=== PATIENT | female | born 1950 | race Caucasian/White ===

== ENCOUNTER 2023-10-02 11:54 | Emergency (ER) | payer MEDICARE, MEDICAID ==
[~2023-10-02] VITALS: Ht 152.4 cm; Wt 91.0 kg
[~2023-10-02 11:54] MED LIST: ALBU18HF2 INH; ATOR40TA71 PO; BACL10TA PO; BUPR100T15 PO; CALC1CAP21 PO; ESCI-8 PO; FLUT1BLS3 INH; FOLI1TAB27 PO; GABA600T13 PO; GUAI600T45 PO; HYDR-3972 PO; IPRA3AMP31 IH; LISI10TA27 PO; LOP25T PO; LORA-269 PO; LORA10TA65 PO; MEMA10TA56 PO; METH-348 PO; MIRT-88 PO; MULT-25 PO; NITR0.4T51 SL; PANT40TA54 PO; PRE5T PO; QUET100T34 PO; QUET300T91 PO; QUET50TA15 PO; RISP0.5T65 PO; VENL150T3 PO; thiamine tablet PO
[2023-10-02 12:03] VITALS: TEMP 98.2
[2023-10-02 12:33] LABS: EOSINOPHILS # (AUTO) 0.2 X10'3 (0-0.9); MEAN PLATELET VOLUME 8.2 FL (7.4-10.4); PLATELET COUNT 199 X10'3 (140-440)
[2023-10-02 12:35] LABS: BASOPHILS # (AUTO) 0.1 X10'3 (0-0.2); HEMATOCRIT 34.4 % (35.0-45.0); LYMPHOCYTES # (AUTO) 2.3 X10'3 (1.1-4.8); LYMPHOCYTES % (AUTO) 24.8 % (21-51); MEAN CORPUSCULAR HEMOGLOBIN 30.6 PG (27.0-31.0); MEAN CORPUSCULAR HGB CONC 31.9 g/dL (33.0-36.5); MONOCYTES # (AUTO) 0.9 X10'3 (0-0.9); NEUTROPHILS # (AUTO) 5.7 X10'3 (1.8-7.7); NEUTROPHILS % (AUTO) 62.2 % (42-75); RED BLOOD COUNT 3.59 X10'6 (4.20-5.60); RED CELL DISTRIBUTION WIDTH 17.6 % (11.5-14.5); WHITE BLOOD COUNT 9.1 X10'3 (4.5-11.0)
[2023-10-02 12:48] LABS: ALANINE AMINOTRANSFERASE 25 U/L (12-78); ALBUMIN 2.9 G/DL (3.4-5.0); ALBUMIN/GLOBULIN RATIO 0.7 (1.1-1.5); ALKALINE PHOSPHATASE 145 IU/L (46-116); ANION GAP 8 (8-16); ASPARTATE AMINO TRANSFERASE 31 U/L (10-37); BILIRUBIN,TOTAL 0.2 MG/DL (0.1-1.0); BLOOD UREA NITROGEN 56 MG/DL (7-18); BUN/CREATININE RATIO 25.3 (10.0-20.0); CALCIUM 8.9 MG/DL (8.5-10.1); CHLORIDE 106 MMOL/L (99-107); CREATININE 2.21 MG/DL (0.40-0.90); GLUCOSE 105 MG/DL (70-104); POTASSIUM 5.5 MMOL/L (3.5-5.1); SODIUM 140 MMOL/L (135-145); TOTAL PROTEIN 6.9 G/DL (6.4-8.2); eCRCL 17 ML/MIN; eGFR 22 ML/MIN
[2023-10-02 12:55] LABS: PRO BRAIN NATRIURETIC PEPTIDE 154 PG/ML (0-125)
[2023-10-02] MEDS ORDERED: methylPREDNISolone sod succ 125mg/2ml vial IV ONE (13:10)
[2023-10-02 13:28] VITALS: PULSE 80; PULSE 86; RESP 1; RESP 8; O2SAT 9; O2SAT 91
[2023-10-02] MEDS ORDERED: PRED20TA PO (14:44)
[2023-10-02] MEDS ORDERED: CEPH250T PO (14:45)
[2023-10-02] MEDS ORDERED: ipratropium/albuterol 3ml nebule NEB SCH (15:00)
[2023-10-02 15:25] VITALS: BP 125/88; PULSE 95; RESP 16; O2SAT 95
== END 2023-10-02 15:34 | disposition home or self-care (01) ==
LOC: ER 11:54
DX: J44.1 Chronic obstructive pulmonary disease with (acute) exacerbation (principal)
CPT/HCPCS: 36415; 71045; 80053; 83605; 83880; 84484; 85025; 87040; 93005; 96374; 99285; J2930; 94760

== ENCOUNTER 2023-12-16 14:05 | Emergency (ER) | payer MEDICARE, MEDICAID ==
[~2023-12-16] VITALS: Ht 152.4 cm; Wt 90.3 kg
[~2023-12-16 14:05] MED LIST changes: -ESCI-8 PO; -GUAI600T45 PO; -MULT-25 PO; -PRE5T PO; -RISP0.5T65 PO; +RISP0.5T80 PO
[2023-12-16 14:23] VITALS: BP 127/80; PULSE 103; RESP 22; TEMP 97.4; O2SAT 96
[2023-12-16] MEDS ORDERED: NYST30CR35 TOP (14:49)
[2023-12-16] MEDS: dexamethasone sod phosphate 10mg/ml inj PO STA (17:22)
== END 2023-12-16 18:05 | disposition home or self-care (01) ==
LOC: ER 14:06
DX: B37.2 Candidiasis of skin and nail (principal); F20.9 Schizophrenia, unspecified; J44.9 Chronic obstructive pulmonary disease, unspecified; Z88.8 Allergy status to other drugs, medicaments and biological substances
CPT/HCPCS: 71045; 99283; J1100

== ENCOUNTER 2024-01-08 13:32 | Emergency (ER) | payer MEDICARE, MEDICAID ==
[~2024-01-08] VITALS: Ht 152.4 cm; Wt 88.0 kg
[~2024-01-08 13:32] MED LIST changes: +NYST30CR35 TOP
[2024-01-08 13:36] VITALS: TEMP 99.3
[2024-01-08 14:44] LABS: BASOPHILS # (AUTO) 0.1 X10'3 (0-0.2); BASOPHILS % (AUTO) 0.7 % (0-1); EOSINOPHILS # (AUTO) 0.2 X10'3 (0-0.9); EOSINOPHILS % (AUTO) 1.4 % (0-6); HEMATOCRIT 34.1 % (35.0-45.0); HEMOGLOBIN 10.5 g/dl (12.0-16.0); LYMPHOCYTES # (AUTO) 1.9 X10'3 (1.1-4.8); LYMPHOCYTES % (AUTO) 17.1 % (21-51); MEAN CORPUSCULAR HGB CONC 30.7 g/dL (33.0-36.5); MEAN CORPUSCULAR VOLUME 91.2 FL (78-98); MEAN PLATELET VOLUME 8.4 FL (7.4-10.4); MONOCYTES # (AUTO) 1.1 X10'3 (0-0.9); MONOCYTES % (AUTO) 10.3 % (2-12); NEUTROPHILS # (AUTO) 7.8 X10'3 (1.8-7.7); NEUTROPHILS % (AUTO) 70.5 % (42-75); PLATELET COUNT 296 X10'3 (140-440); RED BLOOD COUNT 3.74 X10'6 (4.20-5.60); RED CELL DISTRIBUTION WIDTH 17.9 % (11.5-14.5)
[2024-01-08 14:55] LABS: ALBUMIN 3.1 G/DL (3.4-5.0); ANION GAP 8 (8-16); BLOOD UREA NITROGEN 17 MG/DL (7-18); BUN/CREATININE RATIO 9.9 (10.0-20.0); CALCIUM 8.6 MG/DL (8.5-10.1); CHLORIDE 107 MMOL/L (99-107); CREATININE 1.72 MG/DL (0.40-0.90); GLUCOSE 168 MG/DL (70-104); POTASSIUM 4.3 MMOL/L (3.5-5.1); SODIUM 144 MMOL/L (135-145); TOTAL CARBON DIOXIDE 29.3 MMOL/L (24-32); eCRCL 22 ML/MIN; eGFR 29 ML/MIN
[2024-01-08] MEDS: CefTRIAXone 2gm/D5W 50ml BAG 50 ML IV ONE (16:06)
[2024-01-08 17:13] LABS: BILIRUBIN,URINE NEGATIVE (Neg); CLARITY,URINE CLEAR (Clear); COLOR,URINE YELLOW (Yellow); GLUCOSE, URINE >=1000 mg/dl (Neg); KETONES,URINE NEGATIVE (Neg); LEUKOCYTE ESTERASE ,URINE NEGATIVE (Neg); NITRITES, URINE NEGATIVE (Neg); OCCULT BLOOD,URINE NEGATIVE (Neg); PH,URINE 5.5 (4.8-8.0); PROTEIN,URINE NEGATIVE (Neg); UROBILINOGEN,URINE 0.2 E.U/dL (0.2-1.0)
[2024-01-08 17:28] LABS: BACTERIA,URINE NONE SEEN /HPF (Neg); UA COLLECTION TYPE CLN CATCH MIDSTREAM; WBC,URINE 0-4 /HPF (0-4)
[2024-01-08 17:29] LABS: MUCUS STRANDS FEW /LPF (Neg); SQUAMOUS EPITHELIAL CELL,UR FEW /LPF (FEW)
[2024-01-08 18:36] VITALS: BP 130/82; PULSE 87; RESP 16; O2SAT 95
== END 2024-01-08 18:38 | disposition home or self-care (01) ==
LOC: ER 13:33
DX: E11.22 Type 2 diabetes mellitus with diabetic chronic kidney disease (principal); N18.9 Chronic kidney disease, unspecified; E11.622 Type 2 diabetes mellitus with other skin ulcer; L97.129 Non-pressure chronic ulcer of left thigh with unspecified severity; I12.9 Hypertensive chronic kidney disease with stage 1 through stage 4 chronic kidney disease, or unspecified chronic kidney disease; E78.00 Pure hypercholesterolemia, unspecified; I25.2 Old myocardial infarction; J44.9 Chronic obstructive pulmonary disease, unspecified; F20.9 Schizophrenia, unspecified; Z90.49 Acquired absence of other specified parts of digestive tract; F12.90 Cannabis use, unspecified, uncomplicated; Z88.8 Allergy status to other drugs, medicaments and biological substances
CPT/HCPCS: 36415; 71045; 80048; 81001; 82948; 83605; 83735; 84145; 85025; 85651; 87040; 87081; 93005; 96365; 99285; A6223; J0696; J7030; A6402

== ENCOUNTER 2024-03-27 12:48 | Emergency (ER) | payer MEDICARE, MEDICAID ==
[~2024-03-27] VITALS: Ht 162.6 cm; Wt 40.1 kg
[~2024-03-27 12:48] MED LIST changes: +MEMA10TA22 PO; -MEMA10TA56 PO
[2024-03-27 13:31] LABS: BASOPHILS # (AUTO) 0.1 X10'3 (0-0.2); BASOPHILS % (AUTO) 0.5 % (0-1); EOSINOPHILS % (AUTO) 0.3 % (0-6); HEMATOCRIT 40.9 % (35.0-45.0); HEMOGLOBIN 12.7 g/dl (12.0-16.0); LYMPHOCYTES # (AUTO) 1.9 X10'3 (1.1-4.8); LYMPHOCYTES % (AUTO) 13.6 % (21-51); MEAN CORPUSCULAR HEMOGLOBIN 27.8 PG (27.0-31.0); MEAN CORPUSCULAR HGB CONC 31.2 g/dL (33.0-36.5); MEAN CORPUSCULAR VOLUME 89.2 FL (78-98); MEAN PLATELET VOLUME 9.1 FL (7.4-10.4); MONOCYTES % (AUTO) 6.7 % (2-12); NEUTROPHILS # (AUTO) 11.2 X10'3 (1.8-7.7); NEUTROPHILS % (AUTO) 78.9 % (42-75); PLATELET COUNT 288 X10'3 (140-440); RED BLOOD COUNT 4.58 X10'6 (4.20-5.60); RED CELL DISTRIBUTION WIDTH 20.5 % (11.5-14.5); WHITE BLOOD COUNT 14.2 X10'3 (4.5-11.0)
[2024-03-27 14:18] LABS: ALBUMIN 3.5 G/DL (3.4-5.0); ANION GAP 11 (8-16); BLOOD UREA NITROGEN 24 MG/DL (7-18); BUN/CREATININE RATIO 12.9 (10.0-20.0); CALCIUM 10.3 MG/DL (8.5-10.1); CHLORIDE 105 MMOL/L (99-107); CREATININE 1.86 MG/DL (0.40-0.90); GLUCOSE 201 MG/DL (70-104); POTASSIUM 4.8 MMOL/L (3.5-5.1); SODIUM 142 MMOL/L (135-145); TOTAL CARBON DIOXIDE 25.8 MMOL/L (24-32); eCRCL 18 ML/MIN; eGFR 27 ML/MIN
[2024-03-27 14:40] LABS: PLATELET ESTIMATE NORMAL
[2024-03-27 14:41] LABS: ANISOCYTOSIS 3+; POLYCHROMASIA FEW; STOMATOCYTES FEW
[2024-03-27] MEDS ORDERED: AMOX-117 PO (14:49)
[2024-03-27] MEDS ORDERED: SULF-14 PO (14:49)
[2024-03-27] MEDS: normal saline 1000ml 1,000 ML IV ONE ×2 (15:12)
[2024-03-27] MEDS: TETanus/Pertussis (Acell)/Diphther VAC/PF (Tdap-Adult) 0.5ml syringe IMVAC ONE (15:13)
[2024-03-27] MEDS: mupirocin 2% ointment 22GM TP ONE (15:14)
[2024-03-27] MEDS: sulfamethoxazole/trimethoprim DS (800/160mg) tablet PO ONE (15:14)
[2024-03-27] MEDS: LIDOcaine 1% W/epiNEPHrine 1:100,000 20ml vial IJ ONE (15:14)
[2024-03-27] MEDS: amox tr/potassium clavulanate 875/125mg TAB PO ONE (15:14)
[2024-03-27] MEDS: LORazepam 2 mg/ml vial IV ONE (15:19)
[2024-03-27] MEDS: morphine 4 MG/ML inj SYRINge IV ONE (15:20)
[2024-03-27] MEDS: ampicillin/sulbac 3gm/NS 100ml 100 ML IV ONE (16:10)
[2024-03-27 18:52] VITALS: BP 132/66; PULSE 84; RESP 16; TEMP 98.6; O2SAT 98
== END 2024-03-27 18:54 | disposition home or self-care (01) ==
LOC: ER 12:48
DX: J34.0 Abscess, furuncle and carbuncle of nose (principal); J34.89 Other specified disorders of nose and nasal sinuses; E78.00 Pure hypercholesterolemia, unspecified; I10 Essential (primary) hypertension; I25.2 Old myocardial infarction; J45.909 Unspecified asthma, uncomplicated; F20.9 Schizophrenia, unspecified; F12.90 Cannabis use, unspecified, uncomplicated; F19.90 Other psychoactive substance use, unspecified, uncomplicated; Z60.2 Problems related to living alone; Z90.49 Acquired absence of other specified parts of digestive tract; Z98.890 Other specified postprocedural states; Z88.8 Allergy status to other drugs, medicaments and biological substances; Z79.2 Long term (current) use of antibiotics; Z79.899 Other long term (current) drug therapy; Z79.51 Long term (current) use of inhaled steroids
CPT/HCPCS: 10060; 36415; 80048; 83605; 84145; 85008; 85025; 87040; 90715; 96361; 96365; 96375; 99284; G0008; J0295; J2060; J2270; J7030; Z7610; 90471

== ENCOUNTER 2024-04-05 14:05 | Inpatient (IN) | payer MEDICARE, MEDICAID ==
[~2024-04-05] VITALS: Ht 167.6 cm; Wt 86.9 kg
[2024-04-05 15:29] LABS: BASOPHILS # (AUTO) 0.1 X10'3 (0-0.2); BASOPHILS % (AUTO) 0.8 % (0-1); EOSINOPHILS # (AUTO) 0.1 X10'3 (0-0.9); EOSINOPHILS % (AUTO) 1.3 % (0-6); HEMATOCRIT 37.4 % (35.0-45.0); HEMOGLOBIN 11.6 g/dl (12.0-16.0); LYMPHOCYTES # (AUTO) 2.1 X10'3 (1.1-4.8); LYMPHOCYTES % (AUTO) 18.1 % (21-51); MEAN CORPUSCULAR HEMOGLOBIN 27.7 PG (27.0-31.0); MEAN CORPUSCULAR HGB CONC 31.2 g/dL (33.0-36.5); MEAN PLATELET VOLUME 8.8 FL (7.4-10.4); MONOCYTES # (AUTO) 0.9 X10'3 (0-0.9); NEUTROPHILS # (AUTO) 8.2 X10'3 (1.8-7.7); NEUTROPHILS % (AUTO) 71.8 % (42-75); PLATELET COUNT 305 X10'3 (140-440); RED CELL DISTRIBUTION WIDTH 20.6 % (11.5-14.5); WHITE BLOOD COUNT 11.3 X10'3 (4.5-11.0)
[2024-04-05 15:49] LABS: ALBUMIN 3.1 G/DL (3.4-5.0); ANION GAP 8 (8-16); BLOOD UREA NITROGEN 34 MG/DL (7-18); BUN/CREATININE RATIO 11.7 (10.0-20.0); CALCIUM 8.5 MG/DL (8.5-10.1); CHLORIDE 110 MMOL/L (99-107); CREATININE 2.91 MG/DL (0.40-0.90); GLUCOSE 134 MG/DL (70-104); POTASSIUM 5.4 MMOL/L (3.5-5.1); PRO BRAIN NATRIURETIC PEPTIDE 82 PG/ML (0-125); SODIUM 142 MMOL/L (135-145); eGFR 16 ML/MIN
[2024-04-05 15:50] LABS: PLATELET ESTIMATE NORMAL
[2024-04-05 15:51] LABS: ANISOCYTOSIS 3+; STOMATOCYTES 1+
[2024-04-05 17:51] LABS: BILIRUBIN,URINE NEGATIVE (Neg); CLARITY,URINE CLEAR (Clear); COLOR,URINE YELLOW (Yellow); GLUCOSE, URINE >=1000 mg/dl (Neg); KETONES,URINE TRACE mg/dl (Neg); LEUKOCYTE ESTERASE ,URINE NEGATIVE (Neg); NITRITES, URINE NEGATIVE (Neg); OCCULT BLOOD,URINE NEGATIVE (Neg); PH,URINE 5.5 (4.8-8.0); PROTEIN,URINE NEGATIVE (Neg); UROBILINOGEN,URINE 0.2 E.U/dL (0.2-1.0)
[2024-04-05 17:57] LABS: URINE AMPHETAMINE SCREEN NEGATIVE (Neg); URINE BARBITUATE SCREEN NEGATIVE (Neg); URINE BENZODIAZEPINES SCREEN NEGATIVE (Neg); URINE CANNABINOID SCREEN POSITIVE (Neg); URINE COCAINE SCREEN NEGATIVE (Neg); URINE METHADONE SCREEN NEGATIVE (Neg); URINE OPIATE SCREEN NEGATIVE (Neg); URINE PHENCYCLIDINE SCREEN NEGATIVE (Neg)
[2024-04-05 18:05] LABS: UA COLLECTION TYPE CLN CATCH MIDSTREAM
[2024-04-05 18:05] LABS: ETHANOL < 10 MG/DL (<10); SALICYLATE 2.5 MG/DL (4.0-20.0)
[2024-04-05 18:06] LABS: RBC,URINE NONE SEEN /HPF (0-2); SQUAMOUS EPITHELIAL CELL,UR MANY /LPF (FEW); WBC,URINE 0-4 /HPF (0-4)
[2024-04-05 18:07] LABS: BACTERIA,URINE 2+ /HPF (Neg); CAL OXALATE CRYSTALS 1+ /HPF (NEGATIVE)
[2024-04-05 18:13] LABS: ACETAMINOPHEN < 2.0 UG/ML (10-30)
[2024-04-05] MEDS: normal saline 1000ml 1,000 ML IV ONE (19:03)
[2024-04-05] MEDS ORDERED: magnesium Cl slow-release 64mg tablet PO PRN (19:35)
[2024-04-05] MEDS ORDERED: magnesium hydroxide 30ml (MOM) UD suspension PO PRN (19:35)
[2024-04-05] MEDS ORDERED: ondansetron/PF 4mg/2ml inj IV PRN (19:35)
[2024-04-05] MEDS ORDERED: potassium Cl 40MEQ/1/2NS 520ml 520 ML IV PRN (19:35)
[2024-04-05] MEDS ORDERED: magnesium sulf-water 4G/100mL 100 ML IV PRN (19:35)
[2024-04-05] MEDS ORDERED: mag hydrox/Alum hydrox/simeth 30ml oral suspension PO PRN (19:35)
[2024-04-05] MEDS ORDERED: magnesium sulf-water 2g/50mL 50 ML IV PRN (19:35)
[2024-04-05] MEDS ORDERED: acetaminophen 325mg tablet PO PRN (19:35)
[2024-04-05] MEDS ORDERED: potassium Cl 20 mEq SR tablet PO PRN ×2 (19:35)
[2024-04-05] MEDS ORDERED: EMPA10TA PO (19:49)
[2024-04-05] MEDS ORDERED: VENL150C58 PO (19:49)
[2024-04-05] MEDS ORDERED: QUET400T13 PO (19:49)
[2024-04-05] MEDS ORDERED: GABA-530 (19:49)
[2024-04-05] MEDS ORDERED: BUPR-561 PO (19:49)
[2024-04-05] MEDS ORDERED: LISI20TA28 PO (19:49)
[2024-04-05] MEDS ORDERED: QUET25TA36 PO (19:49)
[2024-04-05] MEDS ORDERED: BACL10TA2 PO (19:49)
[2024-04-05] MEDS ORDERED: DICL100G59 (19:51)
[2024-04-05] MEDS ORDERED: albuterol 2.5 MG/3 ML nebule NEB PRN (19:55)
[2024-04-05] MEDS: K and/or MAG REPLACEMENT MC SCH (20:00)
[2024-04-05] MEDS: docusate sod 100mg capsule PO SCH (20:00)
[2024-04-05] MEDS: normal saline 1000ml 1,000 ML IV SCH (20:05)
[2024-04-05 20:06] LABS: HEMOGLOBIN A1C 5.8 % (4.5-6.2)
[2024-04-05 20:09] LABS: C-REACTIVE PROTEIN 0.62 MG/DL (0.0-0.5)
[2024-04-05] MEDS: heparin, porcine 5000 units/ml vial SQ SCH (20:10)
[2024-04-05 20:26] VITALS: PULSE 88; RESP 13; O2SAT 94
[2024-04-05 21:06] LABS: APTT 20 SECONDS (22-32); PROTHROMBIN TIME 10.3 SECONDS (9.0-12.0)
[2024-04-05] MEDS: ipratropium/albuterol 3ml nebule NEB SCH (23:56)
[2024-04-05 23:58] VITALS: PULSE 86; RESP 16; O2SAT 98
[2024-04-06] VITALS (11 sets, daily range): BP systolic 143–154; BP diastolic 74–86; PULSE 79–94; RESP 14–18; TEMP 97.6–98.7; O2SAT 93–95
[2024-04-06 06:47] LABS: BASOPHILS # (AUTO) 0.1 X10'3 (0-0.2); BASOPHILS % (AUTO) 1.1 % (0-1); EOSINOPHILS # (AUTO) 0.2 X10'3 (0-0.9); EOSINOPHILS % (AUTO) 2.8 % (0-6); HEMATOCRIT 33.8 % (35.0-45.0); HEMOGLOBIN 10.8 g/dl (12.0-16.0); LYMPHOCYTES # (AUTO) 2.2 X10'3 (1.1-4.8); LYMPHOCYTES % (AUTO) 30.9 % (21-51); MEAN CORPUSCULAR HEMOGLOBIN 28.4 PG (27.0-31.0); MEAN CORPUSCULAR VOLUME 88.7 FL (78-98); MEAN PLATELET VOLUME 8.8 FL (7.4-10.4); MONOCYTES # (AUTO) 0.5 X10'3 (0-0.9); MONOCYTES % (AUTO) 7.1 % (2-12); NEUTROPHILS # (AUTO) 4.1 X10'3 (1.8-7.7); NEUTROPHILS % (AUTO) 58.1 % (42-75); PLATELET COUNT 251 X10'3 (140-440); RED BLOOD COUNT 3.81 X10'6 (4.20-5.60); RED CELL DISTRIBUTION WIDTH 20.1 % (11.5-14.5); WHITE BLOOD COUNT 7.1 X10'3 (4.5-11.0)
[2024-04-06 07:33] LABS: ALANINE AMINOTRANSFERASE 20 U/L (12-78); ALBUMIN 2.7 G/DL (3.4-5.0); ALBUMIN/GLOBULIN RATIO 0.8 (1.1-1.5); ALKALINE PHOSPHATASE 131 IU/L (46-116); ANION GAP 6 (8-16); ASPARTATE AMINO TRANSFERASE 16 U/L (10-37); BILIRUBIN,TOTAL 0.2 MG/DL (0.1-1.0); BLOOD UREA NITROGEN 27 MG/DL (7-18); BUN/CREATININE RATIO 17.2 (10.0-20.0); CALCIUM 8.7 MG/DL (8.5-10.1); CHLORIDE 114 MMOL/L (99-107); CREATININE 1.57 MG/DL (0.40-0.90); GLUCOSE 77 MG/DL (70-104); POTASSIUM 4.9 MMOL/L (3.5-5.1); SODIUM 144 MMOL/L (135-145); TOTAL PROTEIN 6.2 G/DL (6.4-8.2); eGFR 32 ML/MIN
[2024-04-06 07:35] LABS: CHOL/HDL RATIO 3.3 (0.00-4.99); CHOLESTEROL 111 MG/DL (0-200); HDL CHOLESTEROL 34 MG/DL (35-60); LDL CHOLESTEROL 53 MG/DL (50-100); MAGNESIUM 2.3 MG/DL (1.5-2.4); TRIGLYCERIDES 185 MG/DL (20-135)
[2024-04-06] MEDS: acetaminophen 325mg tablet PO PRN (08:29)
[2024-04-07] VITALS (17 sets, daily range): BP systolic 134–158; BP diastolic 71–84; PULSE 72–97; RESP 12–20; TEMP 97.6–97.9; O2SAT 89–97
[2024-04-07 06:44] LABS: BASOPHILS % (AUTO) 0.7 % (0-1); EOSINOPHILS # (AUTO) 0.1 X10'3 (0-0.9); EOSINOPHILS % (AUTO) 1.8 % (0-6); HEMATOCRIT 35.7 % (35.0-45.0); HEMOGLOBIN 11.3 g/dl (12.0-16.0); LYMPHOCYTES # (AUTO) 1.5 X10'3 (1.1-4.8); LYMPHOCYTES % (AUTO) 23.8 % (21-51); MEAN CORPUSCULAR HEMOGLOBIN 28.5 PG (27.0-31.0); MEAN CORPUSCULAR HGB CONC 31.8 g/dL (33.0-36.5); MEAN CORPUSCULAR VOLUME 89.7 FL (78-98); MEAN PLATELET VOLUME 8.7 FL (7.4-10.4); MONOCYTES # (AUTO) 0.4 X10'3 (0-0.9); MONOCYTES % (AUTO) 6.1 % (2-12); NEUTROPHILS # (AUTO) 4.2 X10'3 (1.8-7.7); NEUTROPHILS % (AUTO) 67.6 % (42-75); PLATELET COUNT 249 X10'3 (140-440); RED BLOOD COUNT 3.98 X10'6 (4.20-5.60); RED CELL DISTRIBUTION WIDTH 20.8 % (11.5-14.5); WHITE BLOOD COUNT 6.3 X10'3 (4.5-11.0)
[2024-04-07 06:56] LABS: ALANINE AMINOTRANSFERASE 22 U/L (12-78); ALBUMIN 2.9 G/DL (3.4-5.0); ALBUMIN/GLOBULIN RATIO 0.8 (1.1-1.5); ALKALINE PHOSPHATASE 139 IU/L (46-116); ANION GAP 9 (8-16); ASPARTATE AMINO TRANSFERASE 16 U/L (10-37); BILIRUBIN,TOTAL 0.3 MG/DL (0.1-1.0); BLOOD UREA NITROGEN 14 MG/DL (7-18); BUN/CREATININE RATIO 12.1 (10.0-20.0); CALCIUM 9.1 MG/DL (8.5-10.1); CHLORIDE 113 MMOL/L (99-107); CREATININE 1.16 MG/DL (0.40-0.90); GLUCOSE 91 MG/DL (70-104); MAGNESIUM 2.3 MG/DL (1.5-2.4); PHOSPHORUS 3.3 MG/DL (2.3-4.5); POTASSIUM 4.8 MMOL/L (3.5-5.1); SODIUM 144 MMOL/L (135-145); TOTAL CARBON DIOXIDE 22.2 MMOL/L (24-32); TOTAL PROTEIN 6.5 G/DL (6.4-8.2); eCRCL 42 ML/MIN; eGFR 46 ML/MIN
[2024-04-07] MEDS ORDERED: ipratropium/albuterol 3ml nebule IH PRN (10:50)
[2024-04-07] MEDS ORDERED: non-formulary drug (Albuterol Sulfate (Ventolin Hfa) 2 PUFFS) INH SCH (10:50)
[2024-04-07] MEDS ORDERED: HYDROcodone/acetaminophen 10/325mg tab PO PRN (10:50)
[2024-04-07] MEDS: LORazepam 1 MG tablet PO PRN (13:16)
[2024-04-07] MEDS: metoprolol tartrate 25mg tablet PO SCH (14:28)
[2024-04-07] MEDS: lisinopril 20mg tablet PO SCH (14:28)
[2024-04-07] MEDS ORDERED: metoprolol tartrate 25mg tablet PO SCH ×2 (20:00)
[2024-04-07] MEDS: mirtazapine 15mg tablet PO SCH (20:30)
[2024-04-07] MEDS: QUEtiapine 25mg tablet PO SCH (20:31)
[2024-04-07] MEDS: atorvastatin 20mg tablet PO SCH (20:32)
[2024-04-07] MEDS: nystatin/triamcinolone cream 15gm TP SCH (22:33)
[2024-04-08] VITALS (11 sets, daily range): BP systolic 138–156; BP diastolic 67–75; PULSE 63–82; RESP 16–18; TEMP 97.3–98; O2SAT 92–98
[2024-04-08 06:22] LABS: BASOPHILS % (AUTO) 0.7 % (0-1); EOSINOPHILS # (AUTO) 0.2 X10'3 (0-0.9); EOSINOPHILS % (AUTO) 2.9 % (0-6); HEMATOCRIT 33.9 % (35.0-45.0); LYMPHOCYTES # (AUTO) 1.7 X10'3 (1.1-4.8); LYMPHOCYTES % (AUTO) 25.8 % (21-51); MEAN CORPUSCULAR HEMOGLOBIN 28.8 PG (27.0-31.0); MEAN CORPUSCULAR HGB CONC 32.3 g/dL (33.0-36.5); MEAN CORPUSCULAR VOLUME 89.1 FL (78-98); MEAN PLATELET VOLUME 8.6 FL (7.4-10.4); MONOCYTES # (AUTO) 0.5 X10'3 (0-0.9); MONOCYTES % (AUTO) 7.1 % (2-12); NEUTROPHILS # (AUTO) 4.3 X10'3 (1.8-7.7); NEUTROPHILS % (AUTO) 63.5 % (42-75); PLATELET COUNT 258 X10'3 (140-440); RED BLOOD COUNT 3.81 X10'6 (4.20-5.60); RED CELL DISTRIBUTION WIDTH 20.6 % (11.5-14.5); WHITE BLOOD COUNT 6.7 X10'3 (4.5-11.0)
[2024-04-08 06:57] LABS: ALANINE AMINOTRANSFERASE 20 U/L (12-78); ALBUMIN 2.6 G/DL (3.4-5.0); ALBUMIN/GLOBULIN RATIO 0.8 (1.1-1.5); ALKALINE PHOSPHATASE 121 IU/L (46-116); ANION GAP 7 (8-16); ASPARTATE AMINO TRANSFERASE 15 U/L (10-37); BILIRUBIN,TOTAL 0.3 MG/DL (0.1-1.0); BLOOD UREA NITROGEN 15 MG/DL (7-18); BUN/CREATININE RATIO 14.3 (10.0-20.0); CALCIUM 8.9 MG/DL (8.5-10.1); CHLORIDE 114 MMOL/L (99-107); CREATININE 1.05 MG/DL (0.40-0.90); GLUCOSE 87 MG/DL (70-104); PHOSPHORUS 3.1 MG/DL (2.3-4.5); POTASSIUM 4.7 MMOL/L (3.5-5.1); SODIUM 146 MMOL/L (135-145); TOTAL CARBON DIOXIDE 25.3 MMOL/L (24-32); TOTAL PROTEIN 5.8 G/DL (6.4-8.2); eCRCL 46 ML/MIN; eGFR 52 ML/MIN
[2024-04-08 07:00] LABS: ANISOCYTOSIS 3+; ELLIPTOCYTES FEW; PLATELET ESTIMATE NORMAL; STOMATOCYTES FEW
[2024-04-08] MEDS ORDERED: lisinopril 20mg tablet PO SCH (08:00)
[2024-04-08] MEDS: buPROPion SR 150mg tablet PO SCH (08:16)
[2024-04-08] MEDS: EMPAGLIFLOZIN 10 MG TABLET PO SCH (08:17)
[2024-04-08] MEDS: calcium carbonate/vitamin D3 tablet PO SCH (08:18)
[2024-04-08] MEDS: thiamine 100mg tablet PO SCH (08:18)
[2024-04-08] MEDS: folic acid 1mg tablet PO SCH (08:19)
[2024-04-08] MEDS: pantoprazole 40mg Tablet.DR PO SCH (08:20)
[2024-04-08] MEDS: venlafaxine XR 75mg capsule (Q24H) PO SCH (08:21)
[2024-04-08] MEDS: methylphenidate 5mg tablet PO SCH (08:22)
[2024-04-08] MEDS: non-formulary drug (Fluticasone/Vilanterol (Breo Ellipta 200-25 Mcg INH) 1 PUFF) IH SCH (08:25)
[2024-04-08] MEDS: sodium chloride 0.45% 1,000 ML IV SCH (09:57)
[2024-04-08 16:59] LABS: HBSAG SCREEN Negative (Negative); HEP B CORE AB, IGM Negative (Negative); HEP B CORE AB, TOT Negative (Negative)
== END 2024-04-08 15:55 | disposition home health service (06) | DRG 682 ==
LOC: ER 14:06 → ED HOLD 19:42 → EDBEDREQ 04-06 16:09 → PCU 3S 04-06 17:30
PROVIDERS: ADMIT Internal Medicine Critical Care Medicine; ATTEND Internal Medicine
DX: N17.0 Acute kidney failure with tubular necrosis (principal); G93.41 Metabolic encephalopathy; J96.10 Chronic respiratory failure, unspecified whether with hypoxia or hypercapnia; R65.10 Systemic inflammatory response syndrome (SIRS) of non-infectious origin without acute organ dysfunction; N18.4 Chronic kidney disease, stage 4 (severe); E86.0 Dehydration; E87.5 Hyperkalemia; I12.9 Hypertensive chronic kidney disease with stage 1 through stage 4 chronic kidney disease, or unspecified chronic kidney disease; E78.00 Pure hypercholesterolemia, unspecified; F25.9 Schizoaffective disorder, unspecified; J44.9 Chronic obstructive pulmonary disease, unspecified; F31.9 Bipolar disorder, unspecified; R79.82 Elevated C-reactive protein (CRP); K21.9 Gastro-esophageal reflux disease without esophagitis; D64.9 Anemia, unspecified; Z87.440 Personal history of urinary (tract) infections; I25.2 Old myocardial infarction; Z90.49 Acquired absence of other specified parts of digestive tract; Z88.6 Allergy status to analgesic agent; Z88.8 Allergy status to other drugs, medicaments and biological substances; Z79.899 Other long term (current) drug therapy; Z88.5 Allergy status to narcotic agent; Z87.891 Personal history of nicotine dependence
CPT/HCPCS: 36415; 70450; 71045; 71250; 80048; 80053; 80061; 80305; 80320; 80329; 81001; 83036; 83605; 83735; 83880; 84100; 84145; 84484; 85008; 85025; 85610; 85651; 85730; 86140; 86704; 86705; 87040; 87081; 87340; 93005; 94640; 94760; 96360; 97116; 97161; 97530; 99285; A4353; A4615; A6455; C1758; G0378; J1644; J3490; J7030

== ENCOUNTER 2024-08-04 11:16 | Emergency (ER) | payer MEDICARE, MEDICAID ==
[~2024-08-04] VITALS: Ht 152.4 cm; Wt 76.3 kg
[~2024-08-04 11:16] MED LIST changes: -ALBU18HF2 INH; +ATOR20TA66 PO; -ATOR40TA71 PO; -BACL10TA PO; -CALC1CAP21 PO; -FLUT1BLS3 INH; -GABA600T13 PO; +HYDR-3686 PO; -HYDR-3972 PO; -IPRA3AMP31 IH; +LIDO700A47 TP; -LISI10TA27 PO; +LOP12.5T PO; -LOP25T PO; -LORA-269 PO; -LORA10TA65 PO; +LORA10TA7 PO; -MEMA10TA22 PO; -METH-348 PO; +MIRT-87 PO; -MIRT-88 PO; -NITR0.4T51 SL; -NYST30CR35 TOP; +OLAN5TAB75 PO; -PANT40TA54 PO; +PRAZ1CAP5 PO; +PREVCR VG; -QUET100T34 PO; -QUET300T91 PO; -QUET50TA15 PO; -RISP0.5T80 PO; -VENL150T3 PO; +VENL75CA61 PO; +[UNRECOGNIZED DRUG - CODE] PO; -thiamine tablet PO
[2024-08-04 11:38] VITALS: BP 137/74; PULSE 91; RESP 18; TEMP 97.8; O2SAT 96
[2024-08-04] MEDS ORDERED: TRAM50TA2 PO (13:50)
[2024-08-04] MEDS ORDERED: PRED50TA PO (13:50)
== END 2024-08-04 14:09 | disposition home or self-care (01) ==
LOC: ER 11:17
DX: M25.512 Pain in left shoulder (principal); E78.00 Pure hypercholesterolemia, unspecified; I10 Essential (primary) hypertension; I25.2 Old myocardial infarction; J44.9 Chronic obstructive pulmonary disease, unspecified; F20.9 Schizophrenia, unspecified; F12.90 Cannabis use, unspecified, uncomplicated; F19.90 Other psychoactive substance use, unspecified, uncomplicated; Z90.49 Acquired absence of other specified parts of digestive tract; Z88.5 Allergy status to narcotic agent; Z88.8 Allergy status to other drugs, medicaments and biological substances; Z88.6 Allergy status to analgesic agent; Z79.899 Other long term (current) drug therapy; Z60.2 Problems related to living alone
CPT/HCPCS: 99283

== ENCOUNTER 2024-08-12 12:09 | Emergency (ER) | payer MEDICARE, MEDICAID ==
[~2024-08-12] VITALS: Ht 152.4 cm; Wt 76.4 kg
[~2024-08-12 12:09] MED LIST changes: +PRED50TA PO; +TRAM50TA2 PO
[2024-08-12 14:48] LABS: BASOPHILS % (AUTO) 0.5 % (0-1); EOSINOPHILS % (AUTO) 0.1 % (0-6); HEMATOCRIT 40.7 % (35.0-45.0); HEMOGLOBIN 13.5 g/dl (12.0-16.0); LYMPHOCYTES % (AUTO) 12.1 % (21-51); MEAN CORPUSCULAR HGB CONC 33.3 g/dL (33.0-36.5); MEAN CORPUSCULAR VOLUME 96.2 FL (78-98); MEAN PLATELET VOLUME 8.3 FL (7.4-10.4); MONOCYTES # (AUTO) 0.1 X10'3 (0-0.9); MONOCYTES % (AUTO) 1.7 % (2-12); NEUTROPHILS # (AUTO) 7.1 X10'3 (1.8-7.7); NEUTROPHILS % (AUTO) 85.6 % (42-75); PLATELET COUNT 332 X10'3 (140-440); RED BLOOD COUNT 4.23 X10'6 (4.20-5.60); RED CELL DISTRIBUTION WIDTH 15.5 % (11.5-14.5); WHITE BLOOD COUNT 8.3 X10'3 (4.5-11.0)
[2024-08-12 15:06] LABS: ALBUMIN 3.5 G/DL (3.4-5.0); ANION GAP 8 (8-16); BLOOD UREA NITROGEN 27 MG/DL (7-18); BUN/CREATININE RATIO 21.6 (10.0-20.0); CALCIUM 9.7 MG/DL (8.5-10.1); CHLORIDE 106 MMOL/L (99-107); CREATININE 1.25 MG/DL (0.40-0.90); GLUCOSE 141 MG/DL (70-104); POTASSIUM 4.5 MMOL/L (3.5-5.1); SODIUM 140 MMOL/L (135-145); THYROID STIMULATING HORMONE 2.39 ulU/ml (0.34-4.50); TOTAL CARBON DIOXIDE 25.9 MMOL/L (24-32); eCRCL 30 ML/MIN; eGFR 42 ML/MIN
[2024-08-12 15:07] LABS: ETHANOL < 10 MG/DL (<10)
[2024-08-12 16:02] LABS: URINE AMPHETAMINE SCREEN NEGATIVE (Neg); URINE BARBITUATE SCREEN NEGATIVE (Neg); URINE BENZODIAZEPINES SCREEN NEGATIVE (Neg); URINE CANNABINOID SCREEN POSITIVE (Neg); URINE COCAINE SCREEN NEGATIVE (Neg); URINE METHADONE SCREEN NEGATIVE (Neg); URINE OPIATE SCREEN NEGATIVE (Neg); URINE PHENCYCLIDINE SCREEN NEGATIVE (Neg)
[2024-08-12 16:10] LABS: ACETAMINOPHEN < 2.0 UG/ML (10-30)
[2024-08-12 16:15] LABS: BILIRUBIN,URINE NEGATIVE (Neg); CLARITY,URINE CLEAR (Clear); COLOR,URINE YELLOW (Yellow); GLUCOSE, URINE NEGATIVE (Neg); KETONES,URINE NEGATIVE (Neg); LEUKOCYTE ESTERASE ,URINE TRACE (Neg); NITRITES, URINE NEGATIVE (Neg); OCCULT BLOOD,URINE NEGATIVE (Neg); PH,URINE 5.5 (4.8-8.0); PROTEIN,URINE NEGATIVE (Neg); UROBILINOGEN,URINE 0.2 E.U/dL (0.2-1.0)
[2024-08-12 16:19] LABS: UA COLLECTION TYPE CLN CATCH MIDSTREAM
[2024-08-12] MEDS ORDERED: FLUT1BLS3 INH (16:19)
[2024-08-12] MEDS ORDERED: CLOZ25TA12 (16:19)
[2024-08-12] MEDS ORDERED: CALC600T35 (16:19)
[2024-08-12] MEDS ORDERED: ALBU10.7 (16:19)
[2024-08-12] MEDS ORDERED: EMPA10TA PO (16:19)
[2024-08-12] MEDS ORDERED: BACL10TA2 PO (16:19)
[2024-08-12] MEDS ORDERED: QUET50TA24 PO (16:19)
[2024-08-12] MEDS ORDERED: LORA-268 (16:19)
[2024-08-12 16:22] LABS: BACTERIA,URINE FEW /HPF (Neg); SQUAMOUS EPITHELIAL CELL,UR MODERATE /LPF (FEW)
[2024-08-12 16:23] LABS: MUCUS STRANDS FEW /LPF (Neg)
[2024-08-12 17:47] VITALS: BP 128/86; PULSE 90; RESP 16; TEMP 98.1; O2SAT 98
== END 2024-08-12 17:51 ==
LOC: ER 12:10
DX: F32.A Depression, unspecified (principal); Z20.822 Contact with and (suspected) exposure to COVID-19; F29 Unspecified psychosis not due to a substance or known physiological condition; E78.00 Pure hypercholesterolemia, unspecified; I10 Essential (primary) hypertension; I25.2 Old myocardial infarction; J44.9 Chronic obstructive pulmonary disease, unspecified; F20.9 Schizophrenia, unspecified; F12.90 Cannabis use, unspecified, uncomplicated; Z88.5 Allergy status to narcotic agent; Z88.6 Allergy status to analgesic agent; Z88.8 Allergy status to other drugs, medicaments and biological substances; Z79.899 Other long term (current) drug therapy; Z90.49 Acquired absence of other specified parts of digestive tract; Z90.89 Acquired absence of other organs
CPT/HCPCS: 36415; 80048; 80305; 80329; 81001; 84443; 85025; 87811; 99284; G0480; 80320

== ENCOUNTER 2024-08-15 09:22 | Emergency (ER) | payer MEDICARE, MEDICAID ==
[~2024-08-15] VITALS: Ht 162.6 cm; Wt 74.5 kg
[~2024-08-15 09:22] MED LIST changes: +ALBU10.7; +BACL10TA2 PO; +CALC600T35; +CLOZ25TA12; +EMPA10TA PO; +FLUT1BLS3 INH; +LORA-268; +QUET50TA24 PO
[2024-08-15 10:36] LABS: BASOPHILS # (AUTO) 0.1 X10'3 (0-0.2); BASOPHILS % (AUTO) 0.7 % (0-1); EOSINOPHILS # (AUTO) 0.2 X10'3 (0-0.9); EOSINOPHILS % (AUTO) 1.4 % (0-6); HEMATOCRIT 40.5 % (35.0-45.0); HEMOGLOBIN 13.2 g/dl (12.0-16.0); LYMPHOCYTES # (AUTO) 3.1 X10'3 (1.1-4.8); LYMPHOCYTES % (AUTO) 28.4 % (21-51); MEAN CORPUSCULAR HEMOGLOBIN 31.3 PG (27.0-31.0); MEAN CORPUSCULAR HGB CONC 32.7 g/dL (33.0-36.5); MEAN CORPUSCULAR VOLUME 95.9 FL (78-98); MEAN PLATELET VOLUME 7.8 FL (7.4-10.4); MONOCYTES # (AUTO) 1.3 X10'3 (0-0.9); MONOCYTES % (AUTO) 11.8 % (2-12); NEUTROPHILS # (AUTO) 6.4 X10'3 (1.8-7.7); NEUTROPHILS % (AUTO) 57.7 % (42-75); PLATELET COUNT 375 X10'3 (140-440); RED BLOOD COUNT 4.22 X10'6 (4.20-5.60); RED CELL DISTRIBUTION WIDTH 15.7 % (11.5-14.5); WHITE BLOOD COUNT 11.1 X10'3 (4.5-11.0)
[2024-08-15 10:59] LABS: ALBUMIN 3.4 G/DL (3.4-5.0); ANION GAP 9 (8-16); BLOOD UREA NITROGEN 25 MG/DL (7-18); CALCIUM 8.7 MG/DL (8.5-10.1); CHLORIDE 105 MMOL/L (99-107); CREATININE 1.19 MG/DL (0.40-0.90); ETHANOL < 10 MG/DL (<10); GLUCOSE 115 MG/DL (70-104); SODIUM 142 MMOL/L (135-145); TOTAL CARBON DIOXIDE 28.4 MMOL/L (24-32); eCRCL 37 ML/MIN; eGFR 45 ML/MIN
[2024-08-15 11:02] LABS: THYROID STIMULATING HORMONE 5.22 ulU/ml (0.34-4.50)
[2024-08-15 13:11] LABS: BILIRUBIN,URINE NEGATIVE (Neg); CLARITY,URINE CLEAR (Clear); COLOR,URINE YELLOW (Yellow); GLUCOSE, URINE NEGATIVE (Neg); KETONES,URINE NEGATIVE (Neg); LEUKOCYTE ESTERASE ,URINE TRACE (Neg); NITRITES, URINE NEGATIVE (Neg); OCCULT BLOOD,URINE NEGATIVE (Neg); PROTEIN,URINE NEGATIVE (Neg); UA COLLECTION TYPE CLN CATCH MIDSTREAM; UROBILINOGEN,URINE 0.2 E.U/dL (0.2-1.0)
[2024-08-15 13:16] LABS: RBC,URINE NONE SEEN /HPF (0-2); SQUAMOUS EPITHELIAL CELL,UR MODERATE /LPF (FEW)
[2024-08-15 13:17] LABS: BACTERIA,URINE FEW /HPF (Neg); HYALINE CASTS 0-3 /LPF (NEGATIVE)
[2024-08-15 13:18] LABS: URINE AMPHETAMINE SCREEN NEGATIVE (Neg); URINE BARBITUATE SCREEN NEGATIVE (Neg); URINE BENZODIAZEPINES SCREEN NEGATIVE (Neg); URINE CANNABINOID SCREEN POSITIVE (Neg); URINE COCAINE SCREEN NEGATIVE (Neg); URINE METHADONE SCREEN NEGATIVE (Neg); URINE OPIATE SCREEN NEGATIVE (Neg); URINE PHENCYCLIDINE SCREEN NEGATIVE (Neg)
[2024-08-15] MEDS ORDERED: LORA10TA7 PO (13:57)
[2024-08-15] MEDS ORDERED: VENL225T3 PO (13:57)
[2024-08-15] MEDS ORDERED: LORA-268 PO (13:57)
[2024-08-15] MEDS ORDERED: OSC500T PO (13:57)
[2024-08-15] MEDS ORDERED: OLAN5TAB3 PO (13:57)
[2024-08-15] MEDS ORDERED: QUET-1 PO (13:57)
[2024-08-15] MEDS ORDERED: ALB0.5UD NEB (13:57)
[2024-08-15] MEDS ORDERED: LOP12.5T PO (13:57)
[2024-08-15] MEDS ORDERED: HYDR-3686 PO (13:57)
[2024-08-15] MEDS ORDERED: ATOR20TA PO (13:57)
[2024-08-15] MEDS ORDERED: MIRT-88 PO (13:57)
[2024-08-15] MEDS ORDERED: BUPR100T5 PO (13:57)
[2024-08-15] MEDS ORDERED: QUET50TA PO (13:57)
[2024-08-15] MEDS ORDERED: LORazepam 0.5 MG tablet PO PRN (14:35)
[2024-08-15] MEDS ORDERED: hydrOXYzine 25 MG tablet PO PRN (14:35)
[2024-08-15] MEDS ORDERED: QUEtiapine 25mg tablet PO PRN (14:45)
[2024-08-15] MEDS ORDERED: albuterol 2.5 MG/3 ML nebule NEB PRN (15:05)
[2024-08-15] MEDS ORDERED: albuterol 2.5 MG/3 ML nebule NEB SCH (20:00)
[2024-08-15] MEDS ORDERED: metoprolol tartrate 12.5mg (1/2 tablet) PO SCH (20:00)
[2024-08-15] MEDS: quetiapine 100mg tablet PO SCH (20:26)
[2024-08-15] MEDS: mirtazapine 15mg tablet PO SCH (20:27)
[2024-08-15] MEDS: buPROPion SR 100mg tab PO SCH (20:27)
[2024-08-15] MEDS: metoprolol tartrate 12.5mg (1/2 tablet) PO SCH (20:27)
[2024-08-15] MEDS: olanzapine 10mg tablet PO SCH (20:27)
[2024-08-16] MEDS: HYDROcodone/acetaminophen 5mg/325mg tablet PO PRN (06:06)
[2024-08-16] MEDS: Fluticasone/Vilanterol (Breo Ellipta 200-25 Mcg INH) IH SCH (08:00)
[2024-08-16] MEDS: EMPAGLIFLOZIN 10 MG TABLET PO SCH (11:53)
[2024-08-16] MEDS: loratadine 10mg tablet PO SCH (11:53)
[2024-08-16] MEDS: atorvastatin 20mg tablet PO SCH (11:54)
[2024-08-16] MEDS: calcium carbonate 500mg tablet PO SCH (11:54)
[2024-08-16] MEDS: baclofen 10mg tablet PO PRN (11:54)
[2024-08-16] MEDS: venlafaxine XR 75mg capsule (Q24H) PO SCH (11:54)
[2024-08-17 05:32] VITALS: BP_DIAS 72
[2024-08-17 08:28] VITALS: BP_SYST 132; PULSE 79
[2024-08-17] MEDS: HYDROcodone/acetaminophen 5mg/325mg tablet PO PRN (11:52)
[2024-08-17] MEDS ORDERED: QUET-1 PO (12:08)
[2024-08-17] MEDS ORDERED: CLOZ25TA36 PO (12:08)
[2024-08-17 15:57] VITALS: RESP 12; TEMP 98; O2SAT 93
[2024-08-18] MEDS ORDERED: QUEtiapine 25mg tablet PO SCH (08:00)
[2024-08-18] MEDS ORDERED: CLOZAPINE 25 MG oral disintegrating tablet PO SCH (08:00)
== END 2024-08-17 15:32 ==
LOC: ER 09:23
DX: R45.851 Suicidal ideations (principal); E78.00 Pure hypercholesterolemia, unspecified; I10 Essential (primary) hypertension; I25.2 Old myocardial infarction; J44.9 Chronic obstructive pulmonary disease, unspecified; F12.90 Cannabis use, unspecified, uncomplicated; F32.A Depression, unspecified; F20.9 Schizophrenia, unspecified; Z90.49 Acquired absence of other specified parts of digestive tract; Z90.89 Acquired absence of other organs; Z88.8 Allergy status to other drugs, medicaments and biological substances; Z88.6 Allergy status to analgesic agent; Z88.5 Allergy status to narcotic agent; Z79.52 Long term (current) use of systemic steroids; Z79.899 Other long term (current) drug therapy; Z60.2 Problems related to living alone; Z20.822 Contact with and (suspected) exposure to COVID-19
CPT/HCPCS: 36415; 80048; 80305; 81001; 84443; 85025; 87811; 99285; A4615; G0480; 80320; 99284

== ENCOUNTER 2024-10-25 12:02 | Emergency (ER) | payer MEDICARE, MEDICAID ==
[~2024-10-25] VITALS: Ht 152.4 cm; Wt 72.2 kg
[~2024-10-25 12:02] MED LIST changes: +ALB0.5UD NEB; -ALBU10.7; +ATOR20TA PO; -ATOR20TA66 PO; -BUPR100T15 PO; +BUPR100T5 PO; -CALC600T35; -CLOZ25TA12; +CLOZ25TA36 PO; -FOLI1TAB27 PO; -LIDO700A47 TP; -LORA-268; +LORA-268 PO; -MIRT-87 PO; +MIRT-88 PO; +OLAN5TAB3 PO; -OLAN5TAB75 PO; +OSC500T PO; -PRAZ1CAP5 PO; -PRED50TA PO; -PREVCR VG; +QUET-1 PO; +QUET50TA PO; -QUET50TA24 PO; -TRAM50TA2 PO; +VENL225T3 PO; -VENL75CA61 PO; -[UNRECOGNIZED DRUG - CODE] PO
[2024-10-25 12:14] VITALS: BP 135/69; PULSE 104; RESP 18; TEMP 99; O2SAT 93
== END 2024-10-25 16:01 | disposition home or self-care (01) ==
LOC: ER 12:03
DX: J06.9 Acute upper respiratory infection, unspecified (principal); H69.92 Unspecified Eustachian tube disorder, left ear; E78.00 Pure hypercholesterolemia, unspecified; I10 Essential (primary) hypertension; I25.2 Old myocardial infarction; F20.9 Schizophrenia, unspecified; J44.9 Chronic obstructive pulmonary disease, unspecified; F12.90 Cannabis use, unspecified, uncomplicated; Z90.89 Acquired absence of other organs; Z90.49 Acquired absence of other specified parts of digestive tract; Z88.8 Allergy status to other drugs, medicaments and biological substances; Z88.6 Allergy status to analgesic agent; Z88.5 Allergy status to narcotic agent; Z79.899 Other long term (current) drug therapy; Z79.52 Long term (current) use of systemic steroids; Z60.2 Problems related to living alone
CPT/HCPCS: 71045; 87502; 87503; 99284

== ENCOUNTER 2025-01-04 12:35 | Outpatient (CLI) | payer MEDICARE, MEDICAID | END 2025-01-04 23:59 | disposition home or self-care (01) | LOC: MRI02 12:35 | PROVIDERS: ATTEND Family Medicine | DX: M50.323 Other cervical disc degeneration at C6-C7 level (principal); M47.22 Other spondylosis with radiculopathy, cervical region; M48.02 Spinal stenosis, cervical region | CPT/HCPCS: 72141 ==

== ENCOUNTER 2025-07-04 11:49 | Outpatient (CLI) | payer MEDICARE, MEDICAID ==
--- NOTE | 2025-07-04 13:06 | RADIOLOGY REPORT ---
EXAM: CT CT CHEST LOW DOSE HISTORY: PERSONAL HISTORY OF NICOTINE DEPENDENCE COMPARISON: CT CT CHEST on DOS: 04/05/24 TECHNIQUE: Noncontrast helical CT images of the chest were performed utilizing low dose lung cancer screening protocol. Sagittal and coronal reformatted images were obtained. This CT exam was performed using one or more of the following dose reduction techniques: Automated exposure control, adjustment of the mA and/or kV according to patient size, or use of iterative reconstruction technique. Radiation Dose: CT Dose: CTDI volume is 2.8 mGy. Dose-length product is 88.83 mGy*cm FINDINGS: There is irregular patchy nodular opacity in the right lower lobe, new versus prior CT scan. There are tree-in-bud opacities of the right upper lobe, new versus prior CT scan. There is scarring in the right middle lobe, stable. There are multiple calcified granulomas in the left lung. No pneumothorax, pleural effusions, or pulmonary edema. No suspicious mediastinal or axillary adenopathy. The heart is not enlarged. There are coronary artery calcifications. No thoracic aortic aneurysm. There is bilateral adrenal gland thickening, not fully imaged here, similar to that seen on the previous CT scan. There is fecal retention in the partially visualized colon. IMPRESSION: 1. Right upper lobe tree-in-bud opacities and patchy nodular right lower lobe opacity are new versus CT scan dated 04/05/2024, more likely inflammatory than neoplastic. Appropriate follow-up may include short interval follow-up noncontrast CT scan of the chest in 1-2 months after appropriate antibiotic therapy versus follow-up PET-CT. 2. Coronary artery disease. 3. Old granulomatous disease of the chest. 4. Bilateral adrenal gland thickening may be due to hyperplasia or adrenal nodules. This appearance is similar to that seen on the previous CT scan from March 2024. Lung-RADS 3S. Probably benign. Recommend follow-up LDCT in 6 months. Lung-RADS v2022.
== END 2025-07-04 23:59 | disposition home or self-care (01) ==
LOC: RAD 11:49
PROVIDERS: ATTEND Family Medicine
DX: Z12.2 Encounter for screening for malignant neoplasm of respiratory organs (principal); Z87.891 Personal history of nicotine dependence; I25.10 Atherosclerotic heart disease of native coronary artery without angina pectoris; E27.8 Other specified disorders of adrenal gland
CPT/HCPCS: 71271